=== PATIENT | female | born 1980 | race Caucasian/White ===

== ENCOUNTER 2018-01-12 10:20 | Emergency (ER) | payer SELFPAY | END 2018-01-12 14:10 | disposition home or self-care (01) | LOC: FTE 10:20 | DX: H57.12 Ocular pain, left eye (principal) | CPT/HCPCS: 99283 ==

== ENCOUNTER 2018-08-21 01:20 | Emergency (ER) | payer MEDICAID | END 2018-08-21 02:51 | disposition home or self-care (01) | LOC: E/R 01:20 | DX: S89.91XA Unspecified injury of right lower leg, initial encounter (principal); W18.30XA Fall on same level, unspecified, initial encounter; Y92.9 Unspecified place or not applicable | CPT/HCPCS: 73562; 99283-25 ==